=== PATIENT | male | born 1960 | race Caucasian/White ===

== ENCOUNTER → 2017-05-02 | Outpatient (CLI) | payer BC ==
[2016-07-20 14:18] VITALS: BMI 23.4
[~2017-05-02] MED LIST: ACE325 PO; ACET-2043 PO; AZIT-1 PO; CEF300 PO; CELE-1 PO; CELE200C7 PO; CREATINE; DOCU-202 PO; FENT-16 TD; HYDR-317 PO; IBUP200C71 PO; LEVO-3 PO; MOM PO; MULT1CAP41 PO; OMEG500C7 PO; OXYC5TAB38 PO; PER PO; POLY17PO21 PO; PROP40TA45 PO; RIVA15TA PO; RIVA20TA PO; WARF-12 PO
== END ==
LOC: LAB 08:53
PROVIDERS: ATTEND Radiology Radiation Oncology
DX: E05.00 Thyrotoxicosis with diffuse goiter without thyrotoxic crisis or storm (principal)
CPT/HCPCS: 36415; 84439; 84443; 84481

== ENCOUNTER 2017-06-10 09:00 | Outpatient (RCR) | payer BC ==
[2016-07-20 14:18] VITALS: BMI 23.4
[2017-06-09 15:03] VITALS: BP 122/77
[2017-06-10] MEDS ORDERED: [UNRECOGNIZED DRUG - CODE] PO (11:31)
[2017-06-10] MEDS ORDERED: ACET500T68 PO (11:32)
== END 2017-07-16 15:50 | disposition home or self-care (01) ==
LOC: RAON 09:00
PROVIDERS: ATTEND Radiology Radiation Oncology
DX: E05.00 Thyrotoxicosis with diffuse goiter without thyrotoxic crisis or storm (principal); K44.9 Diaphragmatic hernia without obstruction or gangrene; Z79.899 Other long term (current) drug therapy
CPT/HCPCS: 36415; 84436; 84439; 84443; 84481; 99212

== ENCOUNTER → 2017-10-29 | Outpatient (CLI) | payer BC ==
[2016-07-20 14:18] VITALS: BMI 23.4
[~2017-10-29] MED LIST changes: +ACET500T68 PO; +IBUP-136 PO; -IBUP200C71 PO; +[UNRECOGNIZED DRUG - CODE] PO
--- NOTE | 2017-10-29 16:51 | RADIOLOGY IMAGING REPORT ---
FACILITY: [facility] - [place], [place] PATIENT NAME: Simon Dolan : 1960 MR: [id number] V: [id number] EXAM DATE: ORDERING PHYSICIAN: NITHYA BARTON TECHNOLOGIST: Location: [facility] Patient: Simon Dolan : 1960 Visit/Account:[id number] Date of Sevice: 10/29/2017 MRI pelvis and right hip Indication: Hip pain. Arthroplasty placement 9 years ago. Comparison: None available Technique: Multiplanar, multisequence MR examination is performed of the pelvis and right hip. Metal artifact reduction sequences were utilized. 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 On the right side, there is a collection of low T1 and bright T2 signal which appears to overlie the posterior margin of the joint space. This extends posteriorly deep to the gluteus nick muscle and overlying the greater trochanter and the posterior shaft of the proximal femur. This is confirmed in multiple projections and is not felt to represent artifact. Differential would favor a collection of fluid. This may represent a pseudotumor after arthroplasty placement. Correlate with arthroplasty typ e. This collection measures up to 6.0 x 11.1 x 2.9 cm in size. No similar findings are seen about the left hip arthroplasty. Appearance of the pubic rami is unremarkable. Iliac wings and bony sacrum appear unremarkable. Degene rative disc disease involves the low lumbar spine. There is prostatic enlargement impressing upon the base of the bladder. Scattered colonic diverticula are seen. Gluteal insertions are not well evaluated due to the artifact. No gross tear is identified. There may be trace greater trochanteric bursitis on the left. IMPRESSION: 1. MRI findings most consistent with a collection of fluid along the posterior margin of the right hi p arthroplasty joint space which extends posteriorly and inferiorly along the proximal shaft of the f emur. Measurements as above. This could represent pseudotumor formation after prior hip arthroplasty placement. Clinical correlation necessary. 2. Prostatic enlargement. 3. Question subtle left-sided greater trochanteric bursitis. This is not optimally evaluated due to t he artifact. Report Dictated By: Xavier Cazares at 10/29/2017 4:32 PM Report E-Signed By: Xavier Cazares at 10/29/2017 4:47 PM WSN:[id number]
== END ==
LOC: MRI 01:55
PROVIDERS: ATTEND Orthopaedic Surgery
DX: N40.0 Benign prostatic hyperplasia without lower urinary tract symptoms (principal); Z96.641 Presence of right artificial hip joint

== ENCOUNTER → 2017-11-24 | Outpatient (CLI) | payer BC ==
[2016-07-20 14:18] VITALS: BMI 23.4
== END ==
LOC: LAB 13:46
DX: Z96.643 Presence of artificial hip joint, bilateral (principal)
CPT/HCPCS: 36415; 82495; 83018